=== PATIENT | male | born 1960 | race African-American/Black ===

== ENCOUNTER 2018-07-22 06:20 | Inpatient (IN) | payer MEDICARE ==
[2018-07-22] MEDS ORDERED: Dexamethasone 4 mg/ml Vial ONE (08:28)
[2018-07-22] MEDS ORDERED: Clindamycin/D5W 900 mg/50 ml Premix Bag ONE (08:28)
[2018-07-22] MEDS ORDERED: Chlorhexidine Gluconate 15 ML UDCUP SSP ONE (09:06)
[2018-07-22] MEDS ORDERED: EPINEPHrine 1 MG/ML AMP ONE (09:06)
[2018-07-22] MEDS ORDERED: Bupivacaine/Epinephrine 0.25% 30 ML VIAL ONE (09:06)
[2018-07-22] MEDS ORDERED: Lidocaine 1% w/Epinephrine 1:100K 30 ML VIAL ONE (09:06)
[2018-07-22] MEDS ORDERED: Lidocaine 2% w/Epi 1:100K 1.7 ML VIAL (Dental) ONE (09:06)
[2018-07-22] MEDS ORDERED: Fentanyl 250 MCG/5 ML VIAL ONE (09:09)
[2018-07-22] MEDS ORDERED: Oxymetazoline HCl 0.05% ( 15 ML ) ONE (09:14)
[2018-07-22] MEDS ORDERED: Lidocaine 2% Jelly 5 ML TUBE ONE (09:14)
[2018-07-22] MEDS ORDERED: PROPOFOL 200 MG/20 ML VIAL ONE (11:24)
[2018-07-22] MEDS ORDERED: Ondansetron PF 4 MG/2 ML Vial ONE (11:24)
[2018-07-22] MEDS ORDERED: Dexamethasone 20 MG/5 ML VIAL ONE (11:24)
[2018-07-22] MEDS ORDERED: Bacitracin Zinc Ointment 30 gm TUBE ONE (12:51)
[2018-07-22] MEDS ORDERED: Ondansetron PF 4 MG/2 ML Vial IVP PRN (13:16)
[2018-07-22] MEDS ORDERED: Morphine 2 MG/ML SYRINGE SLOW IVP PRN (13:17)
[2018-07-22] MEDS ORDERED: HYDROcodone/Acetaminophen 7.5/325 mg Tablet PO PRN (13:19)
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
[2018-07-22] MEDS ORDERED: Fentanyl 100 MCG/2 ML VIAL ONE (13:41)
[2018-07-22 15:30] VITALS: BMI 27.1
[2018-07-22] MEDS: Clindamycin/D5W 900 MG in Premix Bag 1 BAG IVPB SCH (16:49)
[2018-07-22] MEDS: HYDROcodone/Acetaminophen 7.5/325 mg Tablet PO PRN ×2 (16:52→20:58)
[2018-07-23] MEDS: Clindamycin/D5W 900 MG in Premix Bag 1 BAG IVPB SCH ×2 (00:22→08:31)
[2018-07-23] MEDS: Ibuprofen 800 MG TAB PO SCH ×2 (02:11→08:30)
[2018-07-23] MEDS: HYDROcodone/Acetaminophen 7.5/325 mg Tablet PO PRN (02:19)
[2018-07-23 08:31] VITALS: BP 136/71; TEMP 98.2
[2018-07-23] MEDS ORDERED: Docusate Sodium 100 MG/10 ML UDCUP PO SCH (09:00)
== END 2018-07-23 09:45 | disposition home or self-care (01) | DRG 496 ==
LOC: SDC 06:20 → SURG A 13:24
PROVIDERS: ADMIT Dentist Oral and Maxillofacial Surgery; ATTEND Dentist Oral and Maxillofacial Surgery
PROC: 0RPD04Z Removal of Internal Fixation Device from Left Temporomandibular Joint, Open Approach (ICD-10-PCS; principal; 2018-07-22)
PROC: 0NBV0ZZ Excision of Left Mandible, Open Approach (ICD-10-PCS; 2018-07-22)
PROC: 0NSV04Z Reposition Left Mandible with Internal Fixation Device, Open Approach (ICD-10-PCS; 2018-07-22)
PROC: 0CTX0Z0 Resection of Lower Tooth, Single, Open Approach (ICD-10-PCS; 2018-07-22)
DX: S02.602K Fracture of unspecified part of body of left mandible, subsequent encounter for fracture with nonunion (principal); T84.89XA Other specified complication of internal orthopedic prosthetic devices, implants and grafts, initial encounter; Y09 Assault by unspecified means; K01.1 Impacted teeth; F17.210 Nicotine dependence, cigarettes, uncomplicated
CPT/HCPCS: 90471; 90686; C1713; G0008; J0171; J1100; J2001; J2270; J2405; J2704; J3010; J3490